=== PATIENT | male | born 1995 | race Caucasian/White ===

== ENCOUNTER 2016-02-22 10:03 | Emergency (ER) | payer BC, MEDICAID ==
[~2016-02-22] VITALS: Ht 177.8 cm; Wt 60.0 kg
[2016-02-22 10:07] VITALS: Ht 177.8 cm; Wt 60.0 kg
[2016-02-22] MEDS ORDERED: SOD CHLORIDE 0.9% 1,000 ML IV STA ×2 (11:23→12:26)
[2016-02-22] MEDS ORDERED: ONDANSETRON 4 MG INJ IV STA (11:45)
[2016-02-22 12:13] LABS: BASOPHIL # 0.1 10^3/ul (0.0-0.1); BASOPHILS % 1.1 % (0.0-2.0); EOSINOPHILS # 0.1 10^3/ul (0.0-0.5); EOSINOPHILS % 0.8 % (0.0-7.0); HEMATOCRIT 46.8 % (42.0-52.0); HEMOGLOBIN 15.9 g/dl (14.0-18.0); LYMPHOCYTES # 1.5 10^3/ul (0.8-2.9); LYMPHOCYTES % 13.2 % (15.0-51.0); MEAN CORPUSCULAR HEMOGLOBIN 29.6 pg (29.0-33.0); MEAN CORPUSCULAR HGB CONC 33.9 g/dl (32.0-37.0); MEAN CORPUSCULAR VOLUME 87.3 fl (82.0-101.0); MEAN PLATELET VOLUME 7.2 fl (7.4-10.4); MONOCYTE # 0.8 10^3/ul (0.3-0.9); NEUTROPHIL # 8.8 10^3/ul (1.6-7.5); NEUTROPHILS % 77.9 % (39.0-77.0); PLATELET COUNT 302 10^3/UL (140-440); RED BLOOD COUNT 5.36 10^6/ul (4.70-6.10); RED CELL DISTRIBUTION WIDTH 12.6 % (11.5-14.5); UNCORRECTED WBC 11.3 10^3/ul (4.8-10.8); WHITE BLOOD COUNT 11.3 10^3/ul (4.8-10.8)
[2016-02-22 12:19] LABS: CONDITION 1
[2016-02-22 12:21] LABS: ALBUMIN 5.2 g/dl (3.3-4.9)
[2016-02-22 12:22] LABS: POTASSIUM 4.6 mmol/L (3.5-5.1)
[2016-02-22 12:24] LABS: ALBUMIN/GLOBULIN RATIO 1.73; BILIRUBIN,INDIRECT 1.7 mg/dl (0-1.1); BILIRUBIN,TOTAL 1.7 mg/dl (0.2-1.3); CREATININE 0.69 mg/dl (0.61-1.24); TOTAL PROTEIN 8.2 g/dl (6.1-8.1)
[2016-02-22 12:25] LABS: CALCIUM 9.5 mg/dl (8.4-10.2)
[2016-02-22 12:30] LABS: ADD UMIC YES; URINE BILIRUBIN (Dip) NEGATIVE (NEGATIVE); URINE BLOOD (Dip) TRACE (NEGATIVE); URINE COLOR LT. YELLOW (YELLOW); URINE GLUCOSE (Dip) NEGATIVE (NEGATIVE); URINE KETONES (Dip) NEGATIVE (NEGATIVE); URINE LEUKOCYTE ESTERASE (Dip) NEGATIVE (NEGATIVE); URINE NITRITE (Dip) NEGATIVE (NEGATIVE); URINE TOTAL PROTEIN (Dip) NEGATIVE (NEGATIVE); URINE UROBILINOGEN (Dip) 0.2 E.U./dL (0.1-1.0)
[2016-02-22 12:45] LABS: URINE RBCS 0-2 /HPF (0)
--- NOTE | 2016-02-22 13:05 | RADRPT ---
PROCEDURE: XR Chest. CLINICAL INDICATION: Syncope. Chest pain. TECHNIQUE: Single frontal view. COMPARISON: None. FINDINGS: The lungs are clear. The heart size is normal. There is no pleural effusion. There is no pneumothorax. IMPRESSION: 1. Normal chest radiograph. RPTAT: QQ .Alli Oropeza MD, MD Date Time Electronically viewed and signed by .Alli Oropeza MD, MD on 02/22/2016 13:05 .R/
--- NOTE | 2016-02-22 13:38 | ERD ---
ER Documentation Chief Complaint Date/Time DATE: 02/22/16 TIME: 13:35 Chief Complaint RT FLANK PAIN , SYNCOPAL EPISODE TODAY HPI This is a 20-year-old male who presents to the emergency room for evaluation of a syncopal episode which occurred today while he was on the bus. This patient did state that he woke up and was feeling thirsty, he states he urinated and noticed his urine was little darker than normal. He states that when he was on the bus he felt like he was going to pass out and then he awoke and his friends told him that he passed out. The patient states he does have a history of a previous infection in the kidney, and came to the ER today for evaluation. He is denying any active chest pain or palpitations at this time ROS All systems reviewed and are negative except as per history of present illness. Medications Home Meds No Active Prescriptions or Reported Meds Allergies Allergies: Coded Allergies: No Known Allergy (Unverified , 02/22/16) PMhx/Soc Medical and Surgical Hx: pt denies Medical Hx, pt denies Surgical Hx History of Surgery: No Anesthesia Reaction: No Hx Neurological Disorder: No Hx Respiratory Disorders: No Hx Cardiac Disorders: No Hx Psychiatric Problems: No Hx Miscellaneous Medical Probl: No Hx Alcohol Use: No Hx Substance Use: No Hx Tobacco Use: No Smoking Status: Current every day smoker Physical Exam Vitals Vital Signs Date Time Temp Pulse Resp B/P Pulse Ox O2 Delivery O2 Flow Rate FiO2 02/22/16 10:07 98.2 74 18 105/58 99 Physical Exam INITIAL VITAL SIGNS: Reviewed by me GENERAL: The patient is well developed and appropriate for usual state of health in no apparent distress HEENT: Dry mucous membranes, pupils equal, round, and reactive to light. EOMI. There is no scleral icterus. NECK: C-spine is soft and supple, there is no meningismus. There is no cervical lymphadenopathy. LUNGS: Clear to auscultation bilaterally. There are no rales, wheezes or rhonchi. HEART: Regular rate and rhythm, no murmurs, clicks, rubs or gallops. ABDOMEN: Soft, non-tender, non-distended. There are bowel sounds in all four quadrants. No rebound or guarding. EXTREMITIES: There is no peripheral cyanosis or edema. No focal swelling or erythema. NEUROLOGICAL: The patient moves all four extremities with 5/5 strength. Cranial nerves II - XII are intact. Normal gait. Alert and oriented SKIN: There is no apparent rash or petechiae. HEME/LYMPHATIC: There is no evidence of excessive bruising or lymphedema. PSYCHIATRIC: The patient does not appear anxious or depressed. Result Diagram: 02/22/16 1150 02/22/16 1150 Results 24 hrs Laboratory Tests Test 02/22/16 11:50 Alanine Aminotransferase (ALT/SGPT) 26IU/L Albumin 5.2g/dl Albumin/Globulin Ratio 1.73 Alkaline Phosphatase 88IU/L Anion Gap 17 Aspartate Amino Transf (AST/SGOT) 24IU/L Basophils # 0.110^3/ul Basophils % 1.1% Blood Morphology Comment Blood Urea Nitrogen 9mg/dl Calcium Level 9.5mg/dl Carbon Dioxide Level 30mmol/L Chloride Level 99mmol/L Creatinine 0.69mg/dl Direct Bilirubin 0.00mg/dl Eosinophils # 0.110^3/ul Eosinophils % 0.8% Globulin 3.00g/dl Glucose Level 93mg/dl Hematocrit 46.8% Hemoglobin 15.9g/dl Indirect Bilirubin 1.7mg/dl Lipase 85U/L Lymphocytes # 1.510^3/ul Lymphocytes % 13.2% Mean Corpuscular Hemoglobin 29.6pg Mean Corpuscular Hemoglobin Concent 33.9g/dl Mean Corpuscular Volume 87.3fl Mean Platelet Volume 7.2fl Monocytes # 0.810^3/ul Monocytes % 7.0% Neutrophils # 8.810^3/ul Neutrophils % 77.9% Nucleated Red Blood Cells # 0.010^3/ul Nucleated Red Blood Cells % 0.0/100WBC Platelet Count 84430^3/UL Potassium Level 4.6mmol/L Red Blood Count 5.3610^6/ul Red Cell Distribution Width 12.6% Sodium Level 141mmol/L Total Bilirubin 1.7mg/dl Total Protein 8.2g/dl Urine Bilirubin NEGATIVE Urine Clarity CLEAR Urine Color LT. YELLOW Urine Glucose NEGATIVE% Urine Hemoglobin TRACE Urine Ketones NEGATIVE Urine Leukocyte Esterase NEGATIVE Urine Microscopic RBC 0-2/HPF Urine Microscopic WBC NONE SEEN/HPF Urine Nitrite NEGATIVE Urine Specific Sawyer 1.010 Urine Total Protein NEGATIVE Urine Urobilinogen 0.2 E.U./dL Urine pH 7.0 White Blood Count 11.310^3/ul Current Medications Medications (Trade) Dose Ordered Sig/Dom Route PRN Reason Start Time Stop Time Status Last Admin Dose Admin Sodium Chloride (NS) 1,000 ml @ 1,000 mls/hr Q1H STAT IV 02/22/16 11:23 02/22/16 12:22 DC 02/22/16 11:23 Ondansetron HCl 4 mg 4 mg ONCE STAT IV 02/22/16 11:45 02/22/16 11:46 DC 02/22/16 12:32 Sodium Chloride (NS) 1,000 ml @ 1,000 mls/hr Q1H STAT IV 02/22/16 12:26 02/22/16 13:25 DC 02/22/16 12:32 Procedures/MDM EKG: Rate/Rhythm: [Normal Sinus Rhythm] QRS, ST, T-waves: [No changes consistent w/ acute ischemia] Impression: [No evidence of ischemia or arrhythmia] Chest X-ray 1V Interpreted by me: Soft Tissue: No acute abnormalities Bones: No acute abnormalities Mediastinum/Cardiac Silhouette/Lungs: [No acute abnormalities] This 20-year-old male presents to the ER for evaluation of his syncopal episode. After this patient had his blood work obtained in the emergency room he had another syncopal episode which I witnessed. No seizure activity. Patient was unconscious for approximately 10 seconds. He states that he was looking at the blood and passed out. This patient had normal lab work, normal EKG, negative chest x-ray. He was given 2 L of fluid in the emergency room. The patient is a relating without difficulty. The patient's family member stated that a cousin has similar episodes of syncope and was found to have a brain tumor. I do not feel that this patient had a syncopal episode secondary to a brain mass. This patient did have dry mucous membranes and did state that his urine was darker than normal. I feel that his syncope is related to dehydration or vasovagal syncope. This patient is hemodynamically stable at this time will be discharged home with a referral for outpatient neurology for outpatient MRI Departure Diagnosis: Primary Impression: Syncope Additional Impression: Mild dehydration Condition: Stable ERIK SETH DO Feb 22, 2016 13:38
== END 2016-02-22 14:20 | disposition home or self-care (01) ==
LOC: E/R 10:03
DX: R55 Syncope and collapse (principal); E86.0 Dehydration; F17.210 Nicotine dependence, cigarettes, uncomplicated
CPT/HCPCS: 71010; 80053; 81001; 83690; 85025; 93005; J2405; J7030; 36415; 81003; 96374